=== PATIENT | male | born 1950 | race Caucasian/White ===

== ENCOUNTER → 2018-12-15 11:58 | Outpatient (CLI) | payer MEDICARE, SELFPAY ==
--- NOTE | 2018-12-15 12:13 | EKG12_ITS ---
Test Reason : PREOP Blood Pressure : / mmHG Vent. Rate : 056 BPM Atrial Rate : 056 BPM P-R Int : 148 ms QRS Dur : 084 ms QT Int : 442 ms P-R-T Axes : 018 022 048 degrees QTc Int : 426 ms Sinus bradycardia Otherwise normal ECG Confirmed by BERTHA RICE, PRANAY ([id number]), assistant production editor ERIBERTO SHAH ([id number] on 12/16/2018 1:07:30 PM Referred By: Kody Crocker Confirmed By:PRANAY STONE MD
[2018-12-15 12:29] LABS: Hematocrit 46.5 % (40-54); Hemoglobin 15.6 g/dl (13.0-16.5); Mean Corp Hgb Conc 33.5 g/gl (32-36); Mean Corpuscular Hgb 32.2 pg (27.0-32.0); Mean Corpuscular Volume 95.9 fL (80-94); Platelet Count 144 K/mm3 (150-450); RBC Distribution Width CV 12.2 % (11.6-14.6); RBC Distribution Width SD 42.1 fl (35.1-43.9); Red Blood Count 4.85 M/mm3 (4.6-6.2); White Blood Count 5.1 K/mm3 (4.4-11.0)
[2018-12-15 12:33] LABS: Scan Indicated on CBC? Y/N NO
[2018-12-15 13:02] LABS: Anion Gap 7 (5-15); BUN 16 mg/dL (7-18); BUN/Creat Ratio 16.8 RATIO (10-20); Calcium,Total 8.7 mg/dL (8.5-10.1); Chloride 103 mmol/L (98-107); Creatinine, Serum 0.95 mg/dL (0.70-1.30); EST Glomerular Filtration Rate 84 mL/min (>60); Est Glom Filt Rate - Afr Amer 101 mL/min (>60); Glucose 122 mg/dL (74-106); Potassium 4.5 mmol/L (3.5-5.1); Sodium Level 140 mmol/L (136-145)
== END ==
PROVIDERS: Family Provider Family Medicine; PCP Family Medicine; Referring Provider Otolaryngology Otolaryngology/Facial Plastic Surgery; Visit Provider Otolaryngology Otolaryngology/Facial Plastic Surgery
DX: Z01.818 Encounter for other preprocedural examination (principal)
CPT/HCPCS: 36415; 80048; 85027; 93005

== ENCOUNTER 2021-07-02 10:19 | Emergency (ER) | payer MEDICARE, SELFPAY ==
[2021-07-02 10:20] VITALS: BP 127/83; PULSE 65; RESP 16; TEMP 36; O2SAT 96; BMI 34.9
--- NOTE | 2021-07-02 10:35 | VDLE_ITS ---
Reason For Study: LLE swelling Procedure LEFT This is a venous duplex using B-mode, color GSV is normal. flow and spectral Doppler. CFV is compressible, spontaneous, phasic, Exam performed portable in ED. competent, and demonstrates normal A preliminary report was called and/or faxed augmentation. to ED @ 11:15 am. FV is compressible, spontaneous, phasic, competent and demonstrates normal augmentation. POP V is compressible, spontaneous, phasic, competent and demonstrates normal augmentation. T/P Trunk is compressible. PTV is compressible. PERV not well visualized; appears compressible. VL/Venous Duplex US, Unilateral Interpretation Summary There is no evidence of left lower extremity deep vein thrombosis. Left great s aphenous vein appears patent and compressible segmentally. Left peroneal vein not well visualized. Ordering Physician: Thom Payan Referring Physician: Nick Jones Performed By: Shonna Lauren, RENATA, RVT
--- NOTE | 2021-07-02 10:36 | EDS_ITS ---
HPI History of Present Illness Chief Complaint: Lower Extremity Injury Informant: patient Onset/Context/Timing Onset: Days (couple) Context: Gradual Onset Timing: Continuous Quality of Pain: - (redness) Location: LLE Current Severity: Moderate Maximum Severity: Moderate Worsened by: n/a Relieved by: n/a Associated Symptoms Associated Symptoms: Negative for Parasthesia, Weakness and Loss of Funtion Narrative Narrative: 70-year-old male with chronic swelling in both legs for which he wears compression socks, states he noticed erythema left lower leg last couple days, this morning he noticed it on his left lateral proximal thigh so he went to urgent care and was diverted to the emergency department. Patient denies any fevers, chills, systemic symptoms. Denies any history of DVT or PE, he states he has had cellulitis in the past, but he denies any pain except for when his cat walked on his left thigh today and he noticed that was sore but this is not in an area where there is redness. He denies any recent wounds or obvious nidus for infection. [facility] Medical History (Updated 07/02/21 @ 13:[address] Thom Payan MD) HTN (hypertension) Hypothyroid Lymphedema of both lower extremities Home Medications finasteride 5 mg PO DAILY 11/15/13 [History Last Taken Unknown] hydrochlorothiazide 12.5 mg PO DAILY 11/15/13 [History Last Taken Unknown] metoprolol tartrate 25 mg PO DAILY 11/15/13 [History Last Taken Unknown] cephalexin 500 mg PO Q6 #40 capsule 07/02/21 [Rx Last Taken Unknown] levothyroxine 75 mcg PO DAILY 07/02/21 [History Last Taken Unknown] meloxicam 15 mg PO DAILY 07/02/21 [History Last Taken Unknown] Allergy/AdvReac Type Severity Reaction Status Date / Time ampicillin Allergy Hives Verified 07/02/21 10:22 Penicillins Allergy Hives Verified 07/02/21 10:22 Surgical History (Updated 07/02/21 @ 11:10 by Nasima Mosher) Hx of tonsillectomy Social History Smoking Status: Never smoker ROS ROS ED Constitutional Constitutional ED: Denies chills or fever(s) Cardiovascular Cardiovascular: Reports erythema on extremities and pedal edema; Denies chest pain or orthopnea Respiratory/Chest Respiratory/Chest: Denies dyspnea or orthopnea Musculoskeletal Musculoskeletal: Reports as per HPI and extremity pain; Denies neck pain Integumentary Reports erythema and rash; Denies Abrasions or wounds Neurologic Neurologic: Denies paresthesias or weakness EXAM Physical Exam Const Vital Signs: 07/02/21 10:20 07/02/21 11:09 07/02/21 13:00 Temperature 96.8 F L 96.8 F L Temperature Source Temporal Temporal Pulse Rate 65 65 Respiratory Rate 16 16 16 Blood Pressure 127/83 H 127/83 H Blood Pressure Mean 97 97 Pulse Ox 96 96 Oxygen Delivery Method Room Air Room Air Positive well nourished and well developed General Appearance ED: well developed and NAD Neck full ROM and supple Back/Spine normal ROM and normal to inspection Extremity Extremity Narrative: Bilateral lower extremity edema 2+/4 symmetric without calf tenderness. Asymmetrically erythematous on left. Signs of chronic stasis dermatitis in both sides. No inguinal lymphadenopathy or tenderness. Very minor tenderness in the anterior left proximal thigh where there is no erythema, no other left lower extremity tenderness. Neuro oriented x3, no focal motor deficits, no sensory deficits noted and gait normal Sensorium / Orientation: alert Psych mental status grossly normal and thought process normal Skin no wounds Skin Narrative: Blanching nontender erythema up to the left knee throughout the lower leg stocking glove distribution, without any focal lesions or nidus for infection or abscess. In the left lateral thigh toward the buttock, there is an additional patch of similar erythema that is also nontender and blanches, slightly raised. MDM MDM MDM Narrative Medical decision making narrative: Venous eval Doppler left lower extremity negative for any DVT or SVT. Even though the patient really does not have much in the way of discomfort or pain, will assume this is cellulitis until proven otherwise, given his chronic lymphedema which certainly is a risk factor for jaqui t and he has had it before. He is not septic or ill-appearing and has no leukocytosis. Outpatient empiric treatment is appropriate. We will give him a dose of Ancef first in his IV. Lab Data Attestation: I reviewed the patient's lab results. Labs: Laboratory Results - last 24 hr 07/02/21 07/02/21 11:04 11:04 WBC 8.1 RBC 4.45 L Hgb 14.9 Hct 44.6 MCV 100.2 H MCH 33.5 H MCHC 33.4 RDW Std Deviation 45.5 H RDW Coeff of [place] 12.2 Plt Count 138 L MPV 9.5 Immature Gran % (Auto) 0.700 Neut % (Auto) 73.3 H Lymph % (Auto) 13.5 L Saline % (Auto) 11.4 H Eos % (Auto) 0.6 Baso % (Auto) 0.5 Absolute Neuts (auto) 5.9 Absolute Lymphs (auto) 1.09 Nucleated RBC % 0 Sodium 134 L Potassium 4.1 Chloride 101 Carbon Dioxide 29.0 Anion Gap 4 L BUN 17 Creatinine 1.17 Estim Creat Clear Calc 51.83 Est GFR (MDRD) Af Amer 79 Est GFR (MDRD) Non-Af 66 BUN/Creatinine Ratio 14.5 Glucose 135 H Calcium 9.0 Discharge Plan Triage Chief Complaint: Lower Extremity Injury ED Provider: Thom Payan Dx/Rx/DC Orders Clinical Impression: Cellulitis of left leg Instructions: ED Cellulitis Prescriptions: New cephalexin [cephalexin] 500 MG capsule 500 mg PO Q6 Qty: 40 RF: 0 No Action hydrochlorothiazide 12.5 MG capsule 12.5 mg PO DAILY RF: 0 finasteride 5 MG tablet 5 mg PO DAILY RF: 0 metoprolol tartrate 25 MG tablet 25 mg PO DAILY RF: 0 meloxicam 15 mg tablet 15 mg PO DAILY RF: 0 levothyroxine 75 mcg tablet 75 mcg PO DAILY RF: 0 Primary Care Provider: Nick Jones Referrals: Nick Jones MD [Primary Care Provider] - 3-5 Days if not improving Disposition Disposition: Home, Self Care
[2021-07-02 11:09] VITALS: BP 127/83; PULSE 65; RESP 16; TEMP 36; O2SAT 96
[2021-07-02 11:13] LABS: Absolute Lymphocyte Count 1.09 X10^3/uL (0.83-4.51); Absolute Neutrophil Count 5.9 X10^3/uL (2.0-7.7); Basophil# 0.04 X10^3/uL; Basophil% 0.5 % (0-1); Eosinophil# 0.05 X10^3/uL; Eosinophils% 0.6 % (0-5); Hematocrit 44.6 % (40-54); Hemoglobin 14.9 g/dL (13.0-16.5); Lymphocyte # 1.09 X10^3/ul (0.83-4.51); Lymphocyte % 13.5 % (19-41); Mean Corp Hgb Conc 33.4 g/dL (32-36); Mean Corpuscular Hgb 33.5 pg (27.0-32.0); Mean Corpuscular Volume 100.2 fL (80-94); Mean Platelet Vol. 9.5 fl (6.2-12.0); Monocyte# 0.92 X10^3/uL; Monocyte% 11.4 % (0-10); NRBC Flagged by Analyzer 0 % (0-5); Neutrophil # 5.89 X10^3/uL (2.7-7.7); Neutrophil % 73.3 % (47-70); Platelet Count 138 K/mm3 (150-450); RBC Distribution Width CV 12.2 % (11.6-14.6); RBC Distribution Width SD 45.5 fl (35.1-43.9); Red Blood Count 4.45 M/mm3 (4.6-6.2); White Blood Count 8.1 K/mm3 (4.4-11.0)
[2021-07-02 11:31] LABS: Anion Gap 4 (5-15); BUN 17 mg/dL (7-18); BUN/Creat Ratio 14.5 RATIO (10-20); Chloride 101 mmol/L (98-107); Creatinine, Serum 1.17 mg/dL (0.70-1.30); EST Glomerular Filtration Rate 66 mL/min (>60); Est Glom Filt Rate - Afr Amer 79 mL/min (>60); Estimated Creatinine Clearance 51.83 ml/min; Glucose 135 mg/dL (74-106); Potassium 4.1 mmol/L (3.5-5.1); Sodium Level 134 mmol/L (136-145)
[2021-07-02 13:00] VITALS: RESP 16
[2021-07-02] MEDS: Cefazolin 1 GM/50 ML BAG IV (14:00)
[2021-07-02 14:39] VITALS: BP 135/85; PULSE 71; RESP 18; O2SAT 98
== END 2021-07-02 14:40 | disposition home or self-care (01) ==
PROVIDERS: Emergency Provider Emergency Medicine; PCP Family Medicine
DX: L03.116 Cellulitis of left lower limb (principal); I10 Essential (primary) hypertension; E03.9 Hypothyroidism, unspecified; Z79.899 Other long term (current) drug therapy
CPT/HCPCS: 80048; 85025; 93971; 96365; 99283; J7050; A4216

== ENCOUNTER 2022-10-23 09:06 | Emergency (ER) | payer MEDICARE, SELFPAY ==
[2022-10-23 09:08] VITALS: BP 176/88; PULSE 54; RESP 17; TEMP 35.6; O2SAT 100; BMI 34.0
--- NOTE | 2022-10-23 09:34 | ED.VIS.FALL ---
HPI HPI - Fall History of Present Illness Chief Complaint: Fall Informant: patient Occured/Mechanism Occurred: Weeks (1) Mechanism/Context: Yes trip Usually ambulates: Without assistance Pain/Injury Location: Right lower chest Pain Location: chest Quality of Pain: Stabbing Worsened by: Certain movements Relieved by: Rest Associated Symptoms Associated Symptoms: Negative for Parasthesias, Weakness, Loss of function, Inability to ambulate, Loss of consciousness or Amnesia Narrative Narrative: Patient presents with right rib and chest pain that began after a fall 1 week ago. Patient states he tripped and fell and hit his ribs on the hearth of his fireplace. Patient states today he bent forward and felt something pop in the right side of his chest. Patient describes his pain as sharp and stabbing. Patient states it is worse with certain movements. Patient states it is better with rest. Patient denies any head injury or loss of consciousness. Patient denies any paresthesias or weakness. Patient denies any other injuries. [facility] Medical History HTN (hypertension) Hypothyroid Lymphedema of both lower extremities Home Medications finasteride 5 mg tablet 5 mg PO DAILY 11/15/13 [History Last Taken Unknown] hydrochlorothiazide 12.5 mg capsule 12.5 mg PO DAILY 11/15/13 [History Last Taken Unknown] metoprolol tartrate 25 mg tablet 25 mg PO DAILY 11/15/13 [History Last Taken Unknown] levothyroxine 75 mcg tablet 75 mcg PO DAILY 07/02/21 [History Last Taken Unknown] hydrocodone-acetaminophen 5-325mg 5mg-325mg 1 tab PO Q6H PRN PRN Pain 3 days #10 TABLETS 10/23/22 [Rx Last Taken Unknown] Allergy/AdvReac Type Severity Reaction Status Date / Time ampicillin Allergy Hives Verified 10/23/22 09:07 Penicillins Allergy Hives Verified 10/23/22 09:07 Surgical History Hx of tonsillectomy Social History Smoking Status: Never smoker ROS ROS ED Constitutional Constitutional ED: Denies chills or fever(s) Eyes Eyes: Denies blurry vision or change in vision ENT ENT ED: Denies rhinorrhea or sore throat Cardiovascular Cardiovascular: Reports chest pain; Denies palpitations Respiratory/Chest Respiratory/Chest: Denies cough or dyspnea Gastrointestinal Gastrointestinal: Denies nausea or vomiting Genitourinary Genitourinary ED: Denies dysuria or hematuria Musculoskeletal Musculoskeletal: Denies back pain or neck pain Integumentary Denies abscess or rash Neurologic Neurologic: Denies headache(s) or weakness Allergic/Immunologic Allergic/Immunologic ED: Denies mouth swelling or urticaria EXAM Physical Exam Const Vital Signs: 10/23/22 09:08 10/23/22 09:23 Temperature 96.0 F L Temperature Source Temporal Pulse Rate 54 L Respiratory Rate 17 Respiratory Effort Normal Non-Labored Respiratory Depth Normal Respiratory Pattern Normal Blood Pressure 176/88 H Blood Pressure Mean 117 Pulse Ox 100 Oxygen Delivery Method Room Air Positive well nourished and well developed General Appearance ED: well developed and NAD HEENT Reports normocephalic atraumatic Neck full ROM and supple Chest Wall Chest Narrative: There is tenderness, edema, and ecchymosis over the right lower ribs and chest wall. There is no bony crepitance or step-off. There is no obvious deformity. There is no subcutaneous emphysema. There is no paradoxical rib movement. Resp normal respiratory effort and clear to auscultation bilaterally Cardio regular rate and regular rhythm GI non-tender and non-distended Palpation: soft Neuro oriented x3, CN's II-XII intact bilaterally, moves all extremities, no focal motor deficits and no sensory deficits noted Sensorium / Orientation: alert Motor Exam: strength 5/5 throughout Psych mental status grossly normal MDM MDM MDM Narrative Medical decision making narrative: X-rays of the right ribs were obtained. There are 5 views. On my interpretation, there are nondisplaced fractures of the eighth, ninth, and 10th ribs. There is no pneumothorax. There is no pleural effusion noted. There is no acute cardiopulmonary process. Radiologist also interpreted the x-rays and agrees. Patient was advised of his findings. Patient was given a prescription for a short course of [place]. Patient was instructed to use ice to the area. Patient was instructed to take 10-15 deep breaths every hour while awake to prevent atelectasis and pneumonia. Patient was instructed to follow-up with his primary care physician in 5 to 7 days. Patient understood and was agreeable with the plan. All questions were answered. Radiography Diagnostic Testing: Clinical Impression(s) from Imaging Studies Ribs w/Chest X-Ray 10/23/22 09:55 IMPRESSION: RIBS: Nondisplaced fractures along the posterolateral aspect of the right eighth ninth and 10th ribs. CHEST: Normal x-ray examination of the chest. Electronically Signed: Andres Muro MD at 10:20 EST , Discharge Plan Triage Chief Complaint: Fall ED Provider: Marko Borja Dx/Rx/DC Orders Clinical Impression: Right rib fracture, Fall Instructions: ED Rib Fracture Prescriptions: New hydrocodone-acetaminophen [hydrocodone-acetaminophen] 5-325 mg tablet 1 tab PO Q6H PRN PRN (Reason: Pain) 3 Days Qty: 10 0RF No Action hydrochlorothiazide 12.5 MG capsule 12.5 mg PO DAILY Label Comments: UNKNOWN DOSE finasteride 5 MG tablet 5 mg PO DAILY Label Comments: UNKNOWN DOSE metoprolol tartrate 25 MG tablet 25 mg PO DAILY Label Comments: UNKNOWN DOSE levothyroxine 75 mcg tablet 75 mcg PO DAILY Primary Care Provider: Nick Jones Referrals: Nick Jones MD [Primary Care Provider] - 5-7 Days Disposition Disposition: Home, Self Care
--- NOTE | 2022-10-23 09:55 | RAD_ITS ---
STUDY: X-RAY - UNILATERAL RIBS ( RIGHT ) WITH CHEST REASON FOR EXAM: Male, 72 years old. Trauma TECHNIQUE - RIBS: 4 view(s) of the ribs. TECHNIQUE - CHEST: Single PA view of the chest. COMPARISON: None. FINDINGS - RIBS: Nondisplaced fractures along the posterior aspect of the right eighth, ninth and 10th ribs. FINDINGS - CHEST: The lungs are clear and expanded. There is no demonstrated pleural abnormality. Normal size heart. Normal mediastinum and gabriel. Normal visualized pulmonary arteries. Normal visualized aortic arch and descending thoracic aorta. Normal visualized thoracic spine. Normal visualized ribs, clavicles, and shoulders. There is no demonstrated abnormality of the visualized soft tissue structures of the upper abdomen. RAD/Ribs Uni Min 3V w/PA Chest IMPRESSION: RIBS: Nondisplaced fractures along the posterolateral aspect of the right eighth ninth and 10th ribs. CHEST: Normal x-ray examination of the chest. Electronically Signed: Andres Muro MD at 10:20 EST ,
[2022-10-23 11:34] VITALS: PULSE 64; RESP 17; O2SAT 100
== END 2022-10-23 11:38 | disposition home or self-care (01) ==
PROVIDERS: Emergency Provider Emergency Medicine; PCP Family Medicine; Visit Provider Emergency Medicine
DX: S22.41XA Multiple fractures of ribs, right side, initial encounter for closed fracture (principal); I10 Essential (primary) hypertension; E03.9 Hypothyroidism, unspecified; Z79.899 Other long term (current) drug therapy; W19.XXXA Unspecified fall, initial encounter
CPT/HCPCS: 71101; 99282